=== PATIENT | female | born 1960 | race Caucasian/White ===

== ENCOUNTER 2021-02-10 22:51 | Emergency (ER) | payer OTHER, SELFPAY ==
[2021-02-10 23:02] VITALS: BP 132/94; PULSE 99; RESP 28; TEMP 37.6; O2SAT 94; BMI 25.8
[2021-02-10 23:05] VITALS: O2SAT 94
--- NOTE | 2021-02-10 23:09 | XRR_ITS ---
PROCEDURE INFORMATION: Exam: XR Chest Exam date and time: 02/10/2021 11:09 PM Age: 60 years old Clinical indication: Shortness of breath; Patient HX: Covid+ C/O SOB TECHNIQUE: Imaging protocol: XR of the chest. Views: 1 view. COMPARISON: No relevant prior studies available. FINDINGS: Lungs: Hazy bilateral pulmonary opacities which are consistent with COVID-19. Pleural spaces: Unremarkable. No pleural effusion. No pneumothorax. Heart/Mediastinum: There is mild cardiomegaly. Bones/joints: Unremarkable. XR/XR chest 1V portable [id number] IMPRESSION: 1. Hazy bilateral pulmonary opacities which are consistent with COVID-19. 2. Mild cardiomegaly.
[2021-02-11 01:17] LABS: Basophils % 0.1 %; Hematocrit 39.5 % (37.0-47.0); Hemoglobin 12.8 g/dL (11.5-15.3); Lymphocytes # 0.8 10^3/uL (0.8-4.8); Lymphocytes % 11.6 %; Mean Corpuscular HGB Conc 32.4 g/dL (30.0-36.0); Mean Corpuscular Hemoglobin 28.7 pg (28.0-34.0); Mean Corpuscular Volume 88.6 fL (81-99); Mean Platelet Volume 10.6 fL (7.4-10.4); Monocytes # 0.2 10^3/uL (0.2-0.9); Monocytes % 3.1 %; Neutrophils % 84.8 %; Nucleated Red Blood Cells % 0 %; Platelet Count 174 10^3/cmm (130-400); Red Blood Count 4.46 10^6/uL (4.1-5.3); Red Cell Distribution Width 12.6 % (12.1-15.1); White Blood Count 6.7 10^3/uL (4.0-10.0)
--- NOTE | 2021-02-11 01:27 | ED_ITS ---
HPI - General Adult General: Chief complaint: COVID symptoms Stated complaint: LOW O2 Time Seen by Provider: 02/10/21 23:18 History of Present Illness: HPI narrative: CC: Shortness of breath, fever and generalized weakness HPI: This is a 60 yo patient w/ no significant PMH presenting to the ED with dyspnea, malaise, generalized weakness, cough sputum production, and fever at home x 4 days. Since onset of symptoms, has had some shortness of breath and decreased PO intake. NO recent travel. Denies chest pain, N/V, diaphoresis, exertional shortness of breath, GI or other complaints. Denies any pleuritic chest pain, recent surgery/immobilization/travel, or hematemesis or hx of VTE in the past. Onset: 4 days ago Duration: ongoing for the last 4days Location: home Severity: mild Review of Systems Narrative: Constitutional: +subjective fever, +generalized weakness HEENT: No vision changes CV: No chest pain, no palpitations PULM: []cough, +dyspnea. GI: No abdominal pain, no N/V/D. : No dysuria MSKEL: No muscle pain SKIN: No new rashes, no lesions. NEURO: No headache, no focal weakness. HEME: No visible bruises PSYCH: Normal mood PFSH ED PFSH: Family History (Updated 12/14/19 @ 13:37 by Doris Alexander RN) Mother Breast cancer DX's in 70's Anesthesia complication Diabetes Hypertension Denies family history of Clotting disorder Hyperlipidemia Bleeding disorder Stroke Social History (Updated 12/14/19 @ 13:38 by Doris Alexander RN) Smoking and tobacco status: never smoked Alcohol intake: never Physical Exam Narrative: EXAM NARRATIVE: Head: Atraumatic Eyes: PERRL, conjunctiva without injection ENT: Mucous membrane moist NECK: Supple without lymphadenopathy LUNGS: Coarse lung sounds CV: RRR ABDOMEN: Soft, nontender EXTREMITY: Normal ROM SKIN: No rash or erythema NEURO: Awake and alert. No focal motor deficits. PSYCH: Normal mood and affect. Course Vital Signs: Vital signs: Vital Signs Temperature 99.7 F H 02/10/21 23:02 Pulse Rate 86 02/11/21 03:05 Respiratory Rate 28 H 02/11/21 03:05 Blood Pressure 156/84 02/11/21 03:05 Pulse Oximetry 94 02/11/21 03:05 MDM - General Adult MDM Narrative: Medical decision making narrative: [60]yo patient presenting to the ED with shortness of breath, cough, and malaise concerning for pneumonia with findings of fever, decreased/junky breath sounds, and tachypnea. Workup today includes XR chest Defer lab work at this time given that the patient is well appearing with stable vital signs and without recent hospitalization or care facility stay. Given History, Exam, and Workup presentation most consistent with pneumonia.Presentation not consistent with PE, COPD exacerbation, Pneumothorax, TB, Atypical ACS, Esophageal Rupture, Toxic Exposure, Foreign Body Airway Obstruction. Workup: CXR Chest, COVID antigen/ COVID PCR send out Intervention: PO challenge, serial reassessment, oxygen [2:30am] On reassessment, XR findings of ground-glass opacity. Findings consistent with viral pneumonia, suspected COVID. Afebrile currently. Patient continues to sat at 95% on 3L oxygen. Given concerns for possible respiratory decompensation, I have offered patient admission for serial/close observation in the emergency room. At [6:30am], patient declined admission citing strong desire to go home on home oxygen. I have discussed the risks of leaving hospital today including risks of sudden pulmonary decompensation leading to severe respiratory distress and even . Patient verbalizes understanding the consequence of the risks of leaving the hospital today and alternative including staying for serial observation. Given patient's strong desire to go home, I have offered patient outpatient oxygen tank/supply and portable pulse ox with proper instruction to use at home. Patient agrees to monitor oxygen saturation and to come back to the ED if there is any drops in pulse ox reading despite oxygen use. In addition, I have given patient strict follow up with PCP in 24 hrs for reevaluation. Patient verbalizes understanding of all components of our discussion today and reassures me of follow up with PCP and close monitoring. Disposition: Discharge. Patient is given strict return precautions for any worsening dypsnea, changes in pulse ox numbers, any worsening fatigue, dehydration, generalized weakness, altered mental status, or any new or concerning issues. Lab Data: Labs: Lab Results 02/11/21 02/11/21 Range/Units 01:00 01:00 WBC 6.7 (4.0-10.0) 10^3/ uL RBC 4.46 (4.1-5.3) 10^6/u L Hgb 12.8 (11.5-15.3) g/dL Hct 39.5 (37.0-47.0) % MCV 88.6 (81-99) fL MCH 28.7 (28.0-34.0) pg MCHC 32.4 (30.0-36.0) g/dL RDW 12.6 (12.1-15.1) % Plt Count 174 (130-400) 10^3/c mm MPV 10.6 H (7.4-10.4) fL Neut % (Auto) 84.8 % Lymph % (Auto) 11.6 % [place] % (Auto) 3.1 % Eos % (Auto) 0.0 % Baso % (Auto) 0.1 % Neut # (Auto) 5.70 (1.8-7.7) 10^3/u L Lymph # (Auto) 0.8 (0.8-4.8) 10^3/u L [place] # (Auto) 0.2 (0.2-0.9) 10^3/u L Eos # (Auto) 0.0 (0.0-0.8) 10^3/u L Baso # (Auto) 0.0 (0.0-0.1) 10^3/u L Nucleated RBC % (a uto) 0 % Nucleated RBCs # 0.0 /100WBC Sodium 135 L (136-145) mmol/L Potassium 3.4 L (3.5-5.1) mmol/L Chloride 102 (98-107) mmol/L Carbon Dioxide 18 L (22-29) mmol/L Anion Gap 18.4 (5-19) BUN 20 (8-23) mg/dL Creatinine 0.5 (0.5-0.9) mg/dL GFR Calculation 125.9 (90-130) mL/min Glucose 170 H (65-115) mg/dL Calculated Osmolal ity 287 (285-295) mOsm/k g Calcium 8.2 L (8.5-10.5) mg/dL Total Bilirubin 0.3 (0.15-1.2) mg/dL AST 58 H (0-32) U/L ALT 30 (0-33) U/L Alkaline Phosphata se 67 (35-105) IU/L Total Protein 6.4 L (6.6-8.7) g/dL Albumin 3.4 L (3.5-5.2) g/dL Globulin 3.0 (1.3-4.6) g/dL Discharge Plan Discharge Patient Disposition: Home Clinical Impression: Pneumonia due to 2019-nCoV Condition: Stable Prescriptions: No Action lisinopril 10 mg tablet 10 mg PO DAILY RF: 0 sucralfate 1 gram tablet 1 gm PO BID PRNRF: 0 ketorolac 10 mg tablet 10 mg PO TID PRNRF: 0 epinephrine 0.3 mg/0.3 mL auto-injector 0.3 mg IM Q10M PRNRF: 0 Discharge Orders: Discharge ED (Routine); Ordered 02/11/21 Ordered By: Devendra Carrillo Other Ambulatory Orders: DME: Oxygen (Order) Location: None Selected Ordered By: Devendra Carrillo Discharge Diet: Regular Discharge Activity: Resume usual activity Patient Instructions: Severe Acute Respiratory Syndrome (SARS) (ED) Activity Restrictions/Additional Instructions: Come back to the emergency room if your symptoms worsens, if any fever or chills, any nausea vomiting, any new or concerning complaints. Coding Level of Care Code ED Practice Billing Associate for Damian Araujo
[2021-02-11 01:35] LABS: Alanine Aminotransferase 30 U/L (0-33); Albumin Level 3.4 g/dL (3.5-5.2); Alkaline Phosphatase 67 IU/L (35-105); Anion Gap 18.4 (5-19); Aspartate Amino Transferase 58 U/L (0-32); Blood Urea Nitrogen 20 mg/dL (8-23); Calcium 8.2 mg/dL (8.5-10.5); Carbon Dioxide 18 mmol/L (22-29); Chloride 102 mmol/L (98-107); Creatinine Clr Calc Pharmacy 126.3614; Glomerular Filtration Rate 125.9 mL/min (90-130); Glucose 170 mg/dL (65-115); Osmolality Calculated 287 mOsm/kg (285-295); Potassium 3.4 mmol/L (3.5-5.1); Sodium 135 mmol/L (136-145); Total Bilirubin 0.3 mg/dL (0.15-1.2); Total Protein 6.4 g/dL (6.6-8.7)
[2021-02-11 03:05] VITALS: BP 156/84; PULSE 86; RESP 28; O2SAT 94
== END 2021-02-11 09:40 | disposition home or self-care (01) ==
PROVIDERS: Physician Assistant; Emergency Provider Emergency Medicine
DX: U07.1 COVID-19 (principal); J12.82 Pneumonia due to coronavirus disease 2019
CPT/HCPCS: 71045; 80053; 85025; 99282

== ENCOUNTER → 2021-12-10 12:37 | Outpatient (BNVA) | payer OTHER, SELFPAY | PROVIDERS: PCP Internal Medicine; Visit Provider Internal Medicine Cardiovascular Disease | DX: I50.33 Acute on chronic diastolic (congestive) heart failure (principal); I51.89 Other ill-defined heart diseases; R06.02 Shortness of breath; I10 Essential (primary) hypertension; R94.31 Abnormal electrocardiogram [ECG] [EKG] | CPT/HCPCS: 80048; 83880 ==

== ENCOUNTER 2022-04-19 11:51 | Outpatient (CLI) | payer BC, MEDICAID, SELFPAY ==
[2022-04-19 11:55] VITALS: BMI 28.1
--- NOTE | 2022-04-19 12:24 | ECG_ITS ---
[facility] Test Date: 2022-04-19 Pat Name: Maribel Mcbride Department: Room: Gender: Female Houseman: : 1960 Requested By: Abdiaziz Rouse Order Number: [id number] Elia MD: Abdiaziz Rouse M.D. Interpretive Statements NAME OF STUDY: TREADMILL STRESS TEST INDICATION: Abnormal ekg, PROCEDURE: At the baseline, the patient's blood pressure was 149/93 with a heart rate of 101. The baseline electrocardiogram showed normal sinus rhythm with poor R wave progression. Diffuse nonspecific T wave changes. 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 Patient attained a maximum heart rate of 155 beats per minute(97% of the maximum predicted heart rate) with a blood pressure at the peak exercise of 185/101 mm Hg. The EKG at the peak exercise revealed no significant changes. Patient did not have any chest pain or any significant cardiac arrhythmias with the exercise . During the recovery phase, there were no new changes. Blood pressure at the end of the recovery phase was 146/95 mm Hg with a heart rate of 92 per minute. CONCLUSION: 1. No significant EKG changes with the treadmill exercise. 2. No exercise-induced chest pain or cardiac arrhythmia 3. Hypertensive response exercise 3. Impaired exercise tolerance, attained a maximum of 7.0 METs Electronically Signed On 04-24-2022 14:22:30 CDT by Abdiaziz Rouse M.D. [email or web address]
[2022-04-19 12:52] VITALS: BP 146/95; PULSE 92
== END 2022-04-19 11:52 | disposition home or self-care (01) ==
LOC: CDL 11:53
PROVIDERS: PCP Physician Assistant; Visit Provider Internal Medicine Cardiovascular Disease
DX: R94.31 Abnormal electrocardiogram [ECG] [EKG] (principal); R06.02 Shortness of breath
CPT/HCPCS: 93017

== ENCOUNTER 2023-02-17 10:20 | Outpatient (CLI) | payer BC, MEDICAID, SELFPAY ==
--- NOTE | 2023-02-17 10:30 | MM_ITS ---
WS: [id number] Bilateral screening 3D tomosynthesis digital mammogram, 02/17/2023 Clinical Data: SCREENING Comparison: None. Findings: The breast parenchymal pattern shows fat replacement. No spiculated masses or clustered calcification s are seen. There are no secondary signs of carcinoma. There are scattered benign calcifications in b oth breasts. Impression: 1. Negative bilateral mammogram with no prior exam for review. 2. Recommend annual screening mammograms. MM/[place] [id number] BIRADS: 1-Negative FOLLOW UP: 1 Year Follow-up The CAD finished cloth checker was used.
== END 2023-02-17 10:21 | disposition home or self-care (01) ==
LOC: RAD 10:25 → MOBLMAM 10:30
PROVIDERS: PCP Physician Assistant; Visit Provider Physician Assistant
DX: Z12.31 Encounter for screening mammogram for malignant neoplasm of breast (principal)
CPT/HCPCS: 77063; 77067

== ENCOUNTER → 2023-06-04 14:27 | Outpatient (BNVA) | payer BC, MEDICAID, SELFPAY | PROVIDERS: PCP Physician Assistant; Visit Provider Emergency Medicine | DX: J98.8 Other specified respiratory disorders (principal); B97.89 Other viral agents as the cause of diseases classified elsewhere; J21.0 Acute bronchiolitis due to respiratory syncytial virus; J10.1 Influenza due to other identified influenza virus with other respiratory manifestations | CPT/HCPCS: 87400; 87420; 87426 ==

== ENCOUNTER → 2025-03-19 10:57 | Outpatient (BNVA) | payer BC, MEDICAID, SELFPAY | PROVIDERS: PCP Physician Assistant; Visit Provider Internal Medicine Cardiovascular Disease | DX: R07.9 Chest pain, unspecified (principal) | CPT/HCPCS: 93005 ==